=== PATIENT | male | born 1970 | race Caucasian/White ===

== ENCOUNTER 2020-08-18 15:13 | Emergency (ER) | payer SELFPAY ==
[2020-08-18] MEDS ORDERED: Ketorolac 60 MG/2 ML SDV IM ONE (18:02)
[2020-08-18] MEDS ORDERED: Methocarbamol 500 MG Tab PO ONE (18:02)
--- NOTE | 2020-08-18 18:05 | EDM.PDOC ---
ED HPI GENERAL MEDICAL PROBLEM - General Chief Complaint: Neck Problem Stated Complaint: NECK AND SHOULDER PAIN Time Seen by Provider: 08/18/20 17:57 Source of Information: Reports: Patient History Limitations: Reports: No Limitations - History of Present Illness INITIAL COMMENTS - FREE TEXT/NARRATIVE: Negro is a 50-year-old male presenting to the ED for evaluation of upper thoracic back pain. 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 He got bounced around the cab of the bobcat striking his head on the top of the protective cage. Through the day the upper back became more sore and stiff. Tonight he is rating his pain an 8 out of 10. He denies any numbness or tingling down either the arms. He has had no weakness of the upper or lower extremities. The pain worsens with movement. He has not taken anything prior to arrival to the ED for evaluation. 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 Upper Back Pain Score (Numeric/FACES): 7 - Related Data Allergies Allergy/AdvReac Type Severity Reaction Status Date / Time No Known Allergies Allergy Verified 08/18/20 16:07 Home Meds: Home Meds Glucosamine/D3/Boswellia [place] [Osteo Bi-Flex Tablet] 1 each PO BID 08/18/20 [History] methocarbamoL [Methocarbamol] 750 mg PO QID PRN #28 tablet 08/18/20 [Rx] Past Medical History HEENT History: Reports: Impaired Vision Musculoskeletal History: Reports: Fracture Other Musculoskeletal History: r lower leg fx, finger Neurological History: Reports: Concussion - Infectious Disease History Infectious Disease History: Reports: Chicken Pox, Measles, Mumps - Past Surgical History HEENT Surgical History: Reports: Tonsillectomy GI Surgical History: Reports: Appendectomy Social & Family History - Tobacco Use Tobacco Use Status *Q: Current Every Day Tobacco User Years of Tobacco use: 15 Packs/Tins Daily: 0 Used Tobacco, but Quit: No Second Hand Smoke Exposure: Yes - Caffeine Use Caffeine Use: Reports: Coffee - Recreational Drug Use Recreational Drug Use: No ED ROS GENERAL - Review of Systems Review Of Systems: See Below Constitutional: Reports: No Symptoms HEENT: Reports: No Symptoms Respiratory: Reports: No Symptoms Cardiovascular: Reports: No Symptoms Endocrine: Reports: No Symptoms GI/Abdominal: Reports: No Symptoms : Reports: No Symptoms Musculoskeletal: Reports: Back Pain (Upper back pain between the shoulder blades that worsens with movement) Skin: Reports: No Symptoms Neurological: Reports: No Symptoms Psychiatric: Reports: No Symptoms Hematologic/Lymphatic: Reports: No Symptoms Immunologic: Reports: No Symptoms ED EXAM, UPPER BACK/NECK PAIN - Physical Exam Exam: See Below Exam Limited By: No Limitations General Appearance: Alert, Mild Distress Eye Exam: Bilateral Eye: EOMI, PERRL Head Exam: Atraumatic, Normocephalic Neck Exam: Non-Tender, Full Range of Motion, Normal Alignment, Normal Inspection Nexus Criteria: No: Posterior, Midline Cervical Tenderness, Evidence of Intoxication, Altered Level of Consciousness, Focal Neurological Deficit, Painful Distraction Injuries Back Exam: Muscle Spasm (Spasm of the rhomboid muscles bilaterally.), Paraspinal Tenderness (Significant paraspinal muscle spasm bilaterally.), Vertebral Tenderness (Tenderness over T3 and T4 to palpation and percussion.) Extremities: Normal Inspection, Normal Range of Motion Neurologic: No Motor/Sensory Deficits, Alert, Normal Mood/Affect, Oriented x 3 Course - Vital Signs Last Recorded V/S: Last Vital Signs Temp 36.4 C 08/18/20 16:17 Pulse 76 08/18/20 16:17 Resp 16 08/18/20 16:17 BP 138/80 08/18/20 16:17 Pulse Ox 100 08/18/20 16:17 - Orders/Labs/Meds Orders: Active Orders 24 hr Category Date Time Status Thoracic Spine 2V [CR] Stat Exams 08/18/20 18:03 Ordered Meds: Medications Discontinued Medications Generic Name Dose Route Start Last Admin Trade Name Rafalq PRN Reason Stop Dose Admin Ketorolac Tromethamine 60 mg 08/18/20 18:02 08/18/20 18:13 Ketorolac 60 Mg/2 Ml Sdv IM 08/18/20 18:03 60 mg ONETIME ONE Administration Methocarbamol 1,000 mg 08/18/20 18:02 08/18/20 18:13 Methocarbamol 500 Mg Tab PO 08/18/20 18:03 1,000 mg ONETIME ONE Administration - Radiology Interpretation Free Text/Narrative:: I reviewed the x-rays of the thoracic spine. There is no acute abnormalities. - Re-Assessments/Exams Free Text/Narrative Re-Assessment/Exam: 08/18/20 18:26 the patient presents with upper thoracic midline pain with paraspinal and rhomboid muscle spasm. X-rays of the thoracic spine were obtained and show no osseous abnormalities. The patient was given Toradol 60 mg IM and methocarbamol 1000 mg p.o. He has had some mild improvement in his symptoms so far. This is an acute thoracic myofascial strain. The plan is to treat him with oral Toradol 10 mg 4 times daily and methocarbamol 750 mg 4 times daily. The Toradol was sent to the [facility] and the methocarbamol was a printed prescription that he can fill in the morning. I did encourage him to ice the area to reduce spasm. Indications return to the ED were discussed and he was discharged in satisfactory condition. Departure - Departure Time of Disposition: 18:28 Disposition: Home, Self-Care 01 Clinical Impression: Acute thoracic myofascial strain - Discharge Information Instructions: Thoracic Strain, [id number] Referrals: PCP,None [Primary Care Provider] - Forms: ED Department Discharge Care Plan Goals: Your x-ray of the thoracic spine did not show any damage to the bones. There was slight straightening of the curvature of your spine due to the muscle spasm. My plan is to treat you with oral forms of which you received in the shot called Toradol 10 mg 4 times a day for pain control and a prescription for methocarbamol which is a potent nonsedating muscle relaxant that you may take up to 4 times a day for muscle spasm. You are able to work on the methocarbamol. I do encourage you to ice the area of the upper back for 15 to 20 minutes every couple hours that you are awake over the next day or 2. This will help to reduce the amount of spasm in the muscles. I do anticipate that this should get better over the course of the next 3 to 5 days. I have sent the prescription for the Toradol to the [facility] that can be filled in the lobby today. The methocarbamol unfortunately is not available in this machine and will need to be filled at your pharmacy tomorrow morning. Sepsis Event Note (ED) - Evaluation Sepsis Screening Result: No Definite Risk - Focused Exam Vital Signs: Vital Signs Temp Pulse Resp BP Pulse Ox 08/18/20 16:17 36.4 C 76 16 138/80 100 08/18/20 15:54 36.4 C 76 16 138/80 100 - Problem List & Annotations (1) Acute thoracic myofascial strain SNOMED Code(s): 51497742, 20540161 Code(s): S29.019A - STRAIN OF MUSCLE AND TENDON OF UNSP WALL OF THORAX, INIT Status: Acute Priority: Medium Current Visit: Yes Qualifiers: Encounter type: initial encounter Qualified Code(s): S29.019A - Strain of muscle and tendon of unspecified wall of thorax, initial encounter - Problem List Review Problem List Initiated/Reviewed/Updated: Yes - My Orders Last 24 Hours: My Active Orders 08/18/20 18:03 Thoracic Spine 2V [CR] Stat - Assessment/Plan Last 24 Hours: My Active Orders 08/18/20 18:03 Thoracic Spine 2V [CR] Stat
--- NOTE | 2020-08-19 12:06 | CR ---
Thoracic Spine 2V CLINICAL HISTORY: Pain after injury FINDINGS: There is some minimal superior endplate compression seen at T8. Chronology is uncertain There is minimal osteophytosis. The pedicles are unremarkable. Impression: Minimal compression deformity at the superior endplate of T8 of uncertain chronology
== END 2020-08-18 18:57 | disposition home or self-care (01) ==
LOC: JP.ED 15:13
DX: S29.012A Strain of muscle and tendon of back wall of thorax, initial encounter (principal); Z72.0 Tobacco use; W22.8XXA Striking against or struck by other objects, initial encounter
CPT/HCPCS: 72070; 72070-26; 96372; 99283-25; A9270-GY; J1885